=== PATIENT | male | born 1950 | race Caucasian/White ===

== ENCOUNTER → 2023-08-11 12:38 | Outpatient (REF) | payer BC, SELFPAY | LOC: PAVMRI 12:38 | PROVIDERS: ATTENDING PHYSICIAN Internal Medicine | DX: M54.50 Low back pain, unspecified (principal); K50.80 Crohn's disease of both small and large intestine without complications; M54.16 Radiculopathy, lumbar region | CPT/HCPCS: 72148 ==

== ENCOUNTER → 2023-09-06 06:28 | Day surgery (SDC) | payer BC, SELFPAY | LOC: GI 06:28 | PROVIDERS: ATTENDING PHYSICIAN Internal Medicine Gastroenterology | DX: K50.012 Crohn's disease of small intestine with intestinal obstruction (principal); D12.3 Benign neoplasm of transverse colon; K52.9 Noninfective gastroenteritis and colitis, unspecified; K64.0 First degree hemorrhoids | CPT/HCPCS: 45380; 88305 ==

== ENCOUNTER 2024-11-16 06:18 | Day surgery (SDC) | payer BC, SELFPAY | END 2024-11-16 08:53 | disposition home or self-care (01) | LOC: GI 06:18 | PROVIDERS: ATTENDING PHYSICIAN Internal Medicine Gastroenterology; FAMILY PHYSICIAN Internal Medicine | DX: K50.012 Crohn's disease of small intestine with intestinal obstruction (principal); K52.89 Other specified noninfective gastroenteritis and colitis; K63.3 Ulcer of intestine; K64.8 Other hemorrhoids; K56.609 Unspecified intestinal obstruction, unspecified as to partial versus complete obstruction | CPT/HCPCS: 45380; 88305 ==

== ENCOUNTER → 2025-02-14 12:12 | Outpatient (REF) | payer BC, SELFPAY | LOC: MRI 3T 12:12 | PROVIDERS: ATTENDING PHYSICIAN Internal Medicine Gastroenterology; FAMILY PHYSICIAN Internal Medicine | DX: K50.00 Crohn's disease of small intestine without complications (principal) | CPT/HCPCS: 72197; 74183; A9585 ==